=== PATIENT | male | born 1985 | race Hispanic/Latino ===

== ENCOUNTER 2016-11-02 18:49 | Emergency (ER) | payer OTHER ==
[~2016-11-02] VITALS: Ht 175.3 cm; Wt 75.3 kg
[2016-11-02 19:04] VITALS: BP 134/73
--- NOTE | 2016-11-02 19:58 | ED ANKLE/FOOT INJURY COMPLAINT ---
History of Present Illness General Chief Complaint: Lower Extremity Problems Stated Complaint: RIGHT FOOT SWELLING Source: patient, old records Exam Limitations: no limitations Vital Signs & Intake/Output Vital Signs & Intake/Output Vital Signs Date Time Temp Pulse Resp B/P Pulse O2 O2 Flow FiO2 Ox Delivery Rate 11/02 1904 98.8 75 16 134/73 98 Room Air Allergies Coded Allergies: No Known Allergies (11/02/16) Reconcile Medications Cephalexin (Keflex) 500 MG CAPSULE 1 CAP PO TID cellulitis Triage Note: RECEIVED 30 YO MALE C/O RIGHT FORTH TOE REDNESS X 3 DAYS, YESTERDAY RIGHT FOOT SWELLING AND REDNESS DEVELOPED. PT LSO REPORTS LUMP ON LEFT LOWER LEG Triage Nurses Notes Reviewed? yes Occurred: 3 days ago Duration: day(s): (3), constant, getting worse Timing: recent history Severity: mild, moderate Severity Numbers: 4 Pain/Injury Location: Right: Foot, 4th toe. Method of Injury: unknown No Modifying Factors: none Associated Symptoms: swelling, redness HPI: 30-year-old male with no medical history presents to emergency room complaining of initially right fourth toe redness and swelling that began 3 days ago. gradual in onset, aching pain. The patient denies any known injury or trauma however states that he noticed a small puncture to the skin. He states since then he's had the redness swelling and pain extending backwards over the dorsal aspect of his foot. Again he denies any known injury or trauma. Patient denies foreign body sensation, no fever no chills. He denies any numbness or tingling. No other rashes to the skin there are no modifying factors or associated symptoms he denies any pain with weightbearing. No radiation of symptoms otherwise Past History Travel History Traveled to [place] past 21 day No Medical History Any Pertinent Medical History? none Neurological: NONE EENT: NONE Cardiovascular: NONE Respiratory: NONE Gastrointestinal: NONE Hepatic: NONE Renal: NONE Musculoskeletal: NONE Psychiatric: NONE Endocrine: NONE Blood Disorders: NONE Cancer(s): NONE Surgical History Surgical History: none Psychosocial History What is your primary language Egyptian Tobacco Use: Current Daily Use Daily Tobacco Use Amount/Type: => 5 Cigarettes daily Family History Hx Contributory? No Review of Systems Review of Systems Constitutional: Reports: see HPI. All Other Systems: Reviewed and Negative Comments Review of systems: See HPI, All other systems negative. Constitutional, no chills no fever, no malaise HEENT: No visual changes no sore throat no congestion Cardiovascular: No chest pain , no palpitation Skin, see HPI Respiratory: No dyspnea no cough no sputum no hemoptysis GI: No nausea no vomiting, no diarrhea, : No dysuria Muscle skeletal: No joint pain, no joint swelling, no back pain, Neurologic: No numbness no headache Psych: No stress Heme/endocrine: No bruising no bleeding Immunology: No lymphadenopathy, Physical Exam Physical Exam General Appearance: well developed/nourished, no apparent distress, alert, awake Leg/Knee/Thigh Left: normal range of motion Comments: Well-developed well-nourished patient in no apparent distress. HEENT: Atraumatic, extraocular motion intact Neck: Supple, FROM Back: FROM Cardiovascular: Regular rate and rhythms no murmurs Respiratory: No respiratory distress. Patient speaking in full complete sentences. Breath sounds clear to auscultation bilaterally: NO W/R/R Upper Extremities: full range of motion Hip/Pelvis: Atraumatic/Stable. FROM. Knee: Atraumatic/stable. FROM. No joint swelling, no effusion. Leg: Atraumatic. Nontender. No edema, 5 out of 5 strength in the lower extremity, normal dorsiflexion of great toe bilaterally, gross sensation is intact Ankle/Foot: Moderate swelling erythema over the right fourth dorsal toe extending back over the dorsal aspect of the foot, the plantar surface of the foot is atraumatic nontender mild tenderness to palpation over the dorsal foot FROM. No swelling, no effusion. No laxity on exam Pulses: Normal/equal DP/PT pulses bilaterally. Brisk cap refill Neuro: Alert and oriented x3 Skin: Warm & dry;No appreciable rash on exposed skin Psych: Mood affect normal, normal memory normal judgment. Progress Differential Diagnosis: cellulitis, septic arthritis, gout, fracture, dislocation, sprain, contusion Plan of Care: Discussed with the patient plan of care I had an extensive conversation regarding need for close follow up with their primary care physician this week as well as return precautions. I answered all of their questions, they feel comfortable with the plan and follow-up care. I discussed the medications that they will receive with the patient. I gave them signs and symptoms that could indicate an adverse reaction. I have advised them to limit their activities until they can see how they respond to the medication. Departure Departure Time of Disposition: 2001 Disposition: HOME OR SELF CARE Condition: Stable Clinical Impression Primary Impression: Cellulitis Referrals: PATIENT HAS NO PRIMARY CARE DR (PCP/Family) Additional Instructions: Follow-up with her primary care physician next week Keflex as discussed return to ER anytime sooner if you have redness streaking up her leg fever chills despite taking antibiotic or any other concerns. Tylenol Motrin every 4-6 hours.Keep leg elevated. this was sent to your [facility]. Departure Forms: Customer Survey General Discharge Information Prescriptions: Current Visit Scripts Cephalexin (Keflex) 1 CAP PO TID #21 CAP
[2016-11-02] MEDS ORDERED: KEFLEX500 M1 PO (20:03)
== END 2016-11-02 20:00 ==
LOC: ERH 18:49
DX: L03.031 Cellulitis of right toe (principal)